=== PATIENT | female | born 1980 | race Caucasian/White ===

== ENCOUNTER 2016-12-01 18:01 | Emergency (ER) | payer OTHER ==
[~2016-12-01] VITALS: Ht 175.3 cm; Wt 88.0 kg
[~2016-12-01 18:01] MED LIST: BUDE100T PO; CITA-48 PO; CLON1 PO; DOXE25CA2 PO; HYDR1CRE TOP; HYDRO50 PO; LAMO100 PO; MEDR4PAK3 PO; MOBI15TA PO; PRAZ5CAP16 PO
[2016-12-01 18:08] VITALS: BP 120/72; PULSE 74; RESP 18; TEMP 98.4; O2SAT 99
[2016-12-01] MEDS ORDERED: PRAZ5CAP PO (18:42)
[2016-12-01] MEDS ORDERED: TRAZ50TA12 PO (18:42)
[2016-12-01] MEDS ORDERED: CLON1TAB PO (18:42)
--- NOTE | 2016-12-01 19:22 | RADHPO ---
EXAM DATE/TIME: 12/01/2016 18:56 [place] COMPARISON: No previous studies available for comparison. INDICATIONS : Patient complains of pain to first digit, right hand after playing football. MEDICAL HISTORY : None. SURGICAL HISTORY : None. ENCOUNTER: Initial ACUITY: 3 days PAIN SCORE: 9/10 LOCATION: Right hand, first digit FINDINGS: No definite fractures, or dislocations are identified. No definite lytic or sclerotic lesion is seen . CONCLUSION: Unremarkable study. Axel Mcgill MD on December 01, 2016 at 19:19 Board Certified Radiologist. This report was verified electronically.
[2016-12-01] MEDS ORDERED: ACETAMINOPHEN/HYDROcodone 325 MG/5 MG TAB PO ONE (19:30)
[2016-12-01] MEDS ORDERED: ULTR50TA5 PO (19:33)
[2016-12-01] MEDS ORDERED: IBUP800T23 PO (19:33)
--- NOTE | 2016-12-01 19:33 | PD ---
HPI . Right thumb injury Chief Complaint: Injury Time Seen by Provider: 19:21 Travel History International Travel<30 days: No Contact w/Intl Traveler<30days: No Traveled to known affect area: No History of Present Illness HPI Patient presents with an injury to her right thumb. She states that she was playing football 2 days ago. She was tackled and injured her right thumb. She is unsure as to the exact mechanism of the injury to the thumb. She states that she has been treating it with ice. Despite that, she is having increasing bruising, swelling and pain. She subsequently presented to us today for evaluation. [id number]: Right thumb SEVERITY: Severe DURATION: 2 days TIMING: Continuous and worsening CONTEXT: Injured playing football PFSH Past Medical History Bipolar Disorder: Yes Anxiety: Yes Diminished Hearing: No Kidney Stones: Yes (2004, 2006) Medical other: Yes ([place]) Psychiatric: Yes (ptsd/bi polar) ?: Not Past Surgical History Oral Surgery: Yes (JAW FX) Social History Alcohol Use: No ("I QUIT") Tobacco Use: No (denies) Substance Use: No Allergies-Medications (Allergen,Severity, Reaction): Coded Allergies: No Known Allergies (Verified , 12/01/16) Reported Meds & Prescriptions Reported Meds & Active Scripts Active Reported Prazosin (Prazosin HCl) 5 Mg Cap 5 Mg PO HS Trazodone (Trazodone HCl) 50 Mg Tab 50 Mg PO HS Clonazepam 1 Mg Tab 1 Mg PO BID Review of Systems Except as stated in HPI: all other systems reviewed are Neg Musculoskeletal: Positive: Myalgias Skin: Positive Change in Pigmentation Physical Exam Narrative GENERAL: Awake and alert and in no acute distress. SKIN: Warm and dry. Bruising and swelling of the thenar eminence of the right hand and extending into the base of the index finger. CARDIOVASCULAR: Regular rate and rhythm. RESPIRATORY: No accessory muscle use. MUSCULOSKELETAL: No obvious deformities. Tender especially in the thenar eminence of the right thumb. NEUROLOGICAL: Awake and alert. No obvious cranial nerve deficits. Motor grossly within normal limits. Normal speech. PSYCHIATRIC: Appropriate mood and affect; insight and judgment normal. Data Data Last Documented VS Vital Signs Date Time Temp Pulse Resp B/P Pulse Ox O2 Delivery O2 Flow Rate FiO2 12/01/16 18:08 98.4 74 18 120/72 99 Orders Finger ([id number]) (12/01/16 ) Acetamin-Hydrocod 325-5 Mg ([place] 5-325 (12/01/16 19:30) MDM Medical Decision Making Medical Screen Exam Complete: Yes Emergency Medical Condition: Yes Differential Diagnosis Differential diagnosis of extremity trauma includes but is not limited to fracture, sprain or strain, dislocation, contusion Narrative Course Patient presents for evaluation of an injury to her right thumb. Last Impressions Finger X-Ray 12/01/16 0000 Signed Impressions: Service Date/Time: Thursday, December 01, 2016 18:56 - CONCLUSION: Unremarkable study. Axel Mcgill MD The x-ray was independently viewed by me. Diagnosis Primary Impression: Contusion of right thumb Qualified Code: S60.011A - Contusion of right thumb without damage to nail, initial encounter Patient Instructions: Contusion in Adults (DC), General Instructions Med/Other Pt SpecificInfo: Prescription(s) given Scripts Tramadol (Ultram)50 Mg Tab50 Mg PO Q4H PRN (PAIN) #12 TAB Ref 0 Prov:Charlotte Gama MD 12/01/16 Ibuprofen 800 Mg Tay227 Mg PO Q8H PRN (PAIN) #30 TAB Ref 0 Prov:Charlotte Gama MD 12/01/16 Disposition: 01 DISCHARGE HOME Condition: Stable Charlotte Gama MD Dec 01, 2016 19:33
== END 2016-12-01 20:18 | disposition home or self-care (01) ==
LOC: PHEFT 18:01
DX: S60.011A Contusion of right thumb without damage to nail, initial encounter (principal); W03.XXXA Other fall on same level due to collision with another person, initial encounter; Y93.61 Activity, american tackle football; Y92.838 Other recreation area as the place of occurrence of the external cause; Y99.9 Unspecified external cause status
CPT/HCPCS: 73140; 99283

== ENCOUNTER 2017-01-20 13:45 | Emergency (ER) | payer OTHER ==
[~2017-01-20] VITALS: Ht 175.3 cm; Wt 88.0 kg
[~2017-01-20 13:45] MED LIST changes: -BUDE100T PO; -CITA-48 PO; -CLON1 PO; +CLON1TAB PO; -DOXE25CA2 PO; -HYDR1CRE TOP; -HYDRO50 PO; +IBUP800T23 PO; -LAMO100 PO; -MEDR4PAK3 PO; -MOBI15TA PO; +PRAZ5CAP PO; -PRAZ5CAP16 PO; +TRAZ50TA12 PO; +ULTR50TA5 PO
[2017-01-20 14:00] VITALS: BP 124/79; PULSE 81; RESP 20; TEMP 98.3; O2SAT 97
[2017-01-20] MEDS ORDERED: SODIUM CHLORIDE 0.9% FLUSH 10 ML FLUSH IVF PRN (14:15)
[2017-01-20] MEDS ORDERED: SODIUM CHLOR 0.9% 1000 ML INJ 1,000 ML IV ONE (14:30)
--- NOTE | 2017-01-20 14:48 | PD ---
HPI Chief Complaint: General Weakness Time Seen by Provider: 14:12 Travel History International Travel<30 days: No Contact w/Intl Traveler<30days: No Traveled to known affect area: No History of Present Illness HPI 36-year-old female here with complaint of diarrhea and lightheadedness. Patient states that she has had 4 days of loose stool, 5-6 stools per day. No hematochezia. No associated abdominal pain. She feels as though she may be dehydrated and had a near syncopal episode several days ago. Patient feels consistently generally weak and fatigued prompting ER visit. She denies any chest pain, shortness of breath, palpitations, personal or familial history of prolonged QT syndrome, WPW, Brugada. PFSH Past Medical History Bipolar Disorder: Yes Anxiety: Yes Diminished Hearing: No Kidney Stones: Yes (2004, 2006) Psychiatric: Yes (ptsd/bi polar) ?: Not LMP: 12/21/16 Past Surgical History Oral Surgery: Yes (JAW FX) Social History Alcohol Use: No ("I QUIT") Tobacco Use: No (denies) Substance Use: No Allergies-Medications (Allergen,Severity, Reaction): Coded Allergies: No Known Allergies (Verified , 12/01/16) Reported Meds & Prescriptions Reported Meds & Active Scripts Active Ultram (Tramadol HCl) 50 Mg Tab 50 Mg PO Q4H PRN Ibuprofen 800 Mg Tab 800 Mg PO Q8H PRN Reported Prazosin (Prazosin HCl) 5 Mg Cap 5 Mg PO HS Clonazepam 1 Mg Tab 1 Mg PO BID Review of Systems Except as stated in HPI: all other systems reviewed are Neg Physical Exam Narrative GENERAL: Well-appearing female in no acute distress SKIN: Focused skin assessment warm/dry. HEAD: Normocephalic. EYES: No scleral icterus. No injection or drainage. ENT: Mucous membranes pink and moist. NECK: Supple CARDIOVASCULAR: Regular rate and rhythm. No murmur appreciated. RESPIRATORY: No accessory muscle use. Clear to auscultation. Breath sounds equal bilaterally. GASTROINTESTINAL: Abdomen soft, non-tender, nondistended. MUSCULOSKELETAL: Normal gait NEUROLOGICAL: Awake and alert. Motor grossly within normal limits. Normal speech. PSYCHIATRIC: Appropriate mood and affect; insight and judgment normal. Data Data Last Documented VS Vital Signs Date Time Temp Pulse Resp B/P Pulse Ox O2 Delivery O2 Flow Rate FiO2 01/20/17 15:02 98 Room Air 01/20/17 14:07 72 01/20/17 14:00 98.3 20 124/79 Orders Electrocardiogram (01/20/17 14:13) Basic Metabolic Panel (Bmp) (01/20/17 14:13) Ed Urine Pregnancytest Poc (01/20/17 14:13) Complete Blood Count With Diff (01/20/17 14:13) Magnesium (Mg) (01/20/17 14:13) Ecg Monitoring (01/20/17 14:13) Iv Access Insert/Monitor (01/20/17 14:13) Oximetry (01/20/17 14:13) Sodium Chloride 0.9% Flush (Ns Flush) (01/20/17 14:15) Sodium Chlor 0.9% 1000 Ml Inj (Ns 1000 M (01/20/17 14:30) Ondansetron Inj (Zofran Inj) (01/20/17 15:30) Loperamide (Imodium) (01/20/17 15:30) Labs Laboratory Tests Test 01/20/17 14:30 White Blood Count 7.9 TH/MM3 Red Blood Count 4.52 MIL/MM3 Hemoglobin 12.8 GM/DL Hematocrit 39.1 % Mean Corpuscular Volume 86.5 FL Mean Corpuscular Hemoglobin 28.2 PG Mean Corpuscular Hemoglobin 32.6 % Concent Red Cell Distribution Width 13.3 % Platelet Count 259 TH/MM3 Mean Platelet Volume 9.3 FL Neutrophils (%) (Auto) 64.7 % Lymphocytes (%) (Auto) 27.6 % Monocytes (%) (Auto) 6.7 % Eosinophils (%) (Auto) 0.6 % Basophils (%) (Auto) 0.4 % Neutrophils # (Auto) 5.1 TH/MM3 Lymphocytes # (Auto) 2.2 TH/MM3 Monocytes # (Auto) 0.5 TH/MM3 Eosinophils # (Auto) 0.0 TH/MM3 Basophils # (Auto) 0.0 TH/MM3 CBC Comment DIFF FINAL Differential Comment Sodium Level 140 MEQ/L Potassium Level 3.9 MEQ/L Chloride Level 109 MEQ/L Carbon Dioxide Level 23.5 MEQ/L Anion Gap 8 MEQ/L Blood Urea Nitrogen 8 MG/DL Creatinine 0.62 MG/DL Estimat Glomerular Filtration 110 ML/MIN Rate Random Glucose 84 MG/DL Calcium Level 8.2 MG/DL Magnesium Level 2.2 MG/DL [facility] Medical Decision Making Medical Screen Exam Complete: Yes Emergency Medical Condition: Yes Medical Record Reviewed: Yes Differential Diagnosis 36-year-old female here with complaint of 4 days of diarrhea and presyncope/ lightheadedness. Differential includes a viral diarrhea, dehydration, electrolyte abnormality, presyncope, arrhythmia, symptomatic anemia. Narrative Course Patient placed on monitor, IV established and blood obtained. Twelve-lead EKG shows diffuse rhythm without notable ST or T-wave abnormalities and normal intervals. Given 1 L normal saline bolus. CBC, BMP, magnesium, urine test unremarkable. Patient felt nauseous and was given dose of Zofran as well as Imodium for diarrhea. Reassured and will be discharged home. Diagnosis Primary Impression: Gastroenteritis Referrals: Primary Care Physician as needed Additional Instructions: Zofran as needed for nausea, Imodium as needed for diarrhea. Drink plenty of fluids. Follow-up with primary care provider if symptoms persist and return to the ER for the warning signs discussed. EKG, laboratory workup today in the emergency department was unremarkable. Med/Other Pt SpecificInfo: Prescription(s) given Scripts Loperamide (Imodium A-D)2 Mg Tab2 Mg PO DIRECTED PRN (DIARRHEA) #18 TAB Ref 0 One tablet after each loose stool. Not to exceed 8 tablets per day. Prov:Eleanor English MD 01/20/17 Ondansetron Odt (Zofran Odt)8 Mg Tab8 Mg SL Q8H PRN (NAUSEA OR VOMITING) #10 TAB Ref 0 Prov:Eleanor English MD 01/20/17 Disposition: 01 DISCHARGE HOME Condition: Stable Eleanor Enlgish MD January 20, 2017 14:48
[2017-01-20 14:49] LABS: AUTOMATED NEUTROPHIL # 5.1 TH/MM3 (1.8-7.7); BASOPHIL % 0.4 % (0.0-2.0); EOSINOPHIL % 0.6 % (0.0-4.0); HEMATOCRIT 39.1 % (35.0-46.0); HEMO FLAGS DIFF FINAL; LYMPH % 27.6 % (9.0-44.0); LYMPHOCYTE # 2.2 TH/MM3 (1.0-4.8); MEAN CELL VOLUME 86.5 FL (80.0-100.0); MEAN CORPUSCULAR HEMOGLOBIN 28.2 PG (27.0-34.0); MEAN CORPUSCULAR HGB CONC 32.6 % (32.0-36.0); MONO % 6.7 % (0.0-8.0); NEUT % 64.7 % (16.0-70.0); PLATELET COUNT 259 TH/MM3 (150-450); RED BLOOD COUNT 4.52 MIL/MM3 (4.00-5.30); RED CELL DISTRIBUTION WIDTH 13.3 % (11.6-17.2); WHITE BLOOD COUNT 7.9 TH/MM3 (4.0-11.0)
[2017-01-20 15:02] VITALS: O2SAT 98
[2017-01-20 15:25] LABS: BICARBONATE 23.5 MEQ/L (21.0-32.0); MAGNESIUM 2.2 MG/DL (1.5-2.5); POTASSIUM 3.9 MEQ/L (3.5-5.1)
[2017-01-20] MEDS ORDERED: ONDANSETRON HCL 4 MG/2 ML VIAL IV PUSH ONE (15:30)
[2017-01-20] MEDS ORDERED: LOPERAMIDE HCL 2 MG CAP PO ONE (15:30)
[2017-01-20] MEDS ORDERED: IMOD2TAB3 PO (15:48)
[2017-01-20] MEDS ORDERED: ZOFR8TAB4 SL (15:48)
--- NOTE | 2017-01-20 19:56 | EKG ---
Date Performed: 01/20/2017 Time Performed: 14:24:33 PTAGE: 36 years EKG: Sinus rhythm PREVIOUS TRACING : 07/01/2015 11.39 Compared to prior tracing no significant change DOCTOR: Carmen Berg Interpretating Date/Time 01/20/2017 19:55:19
== END 2017-01-20 16:45 | disposition home or self-care (01) ==
LOC: NEPD 13:45
DX: K52.9 Noninfective gastroenteritis and colitis, unspecified (principal); R42 Dizziness and giddiness; R53.1 Weakness; R53.83 Other fatigue; Z87.442 Personal history of urinary calculi; Z86.59 Personal history of other mental and behavioral disorders
CPT/HCPCS: 80048; 83735; 84703; 85025; 93005; 96361; 96374; 99284; J2405; J7030

== ENCOUNTER 2017-12-16 21:02 | Emergency (ER) | payer OTHER ==
[~2017-12-16] VITALS: Ht 175.3 cm; Wt 88.2 kg
[~2017-12-16 21:02] MED LIST changes: +IBUP1TAB7 PO; -IBUP800T23 PO; +IMOD2TAB3 PO; +TRAM50 PO; -TRAZ50TA12 PO; -ULTR50TA5 PO; +ZOFR8TAB4 SL
[2017-12-16 21:08] VITALS: BP 114/65; PULSE 90; RESP 18; TEMP 97.8; O2SAT 97
[2017-12-16] MEDS ORDERED: SODIUM CHLOR 0.9% 1000 ML INJ 1,000 ML IV SCH (21:40)
[2017-12-16 21:45] VITALS: RESP 18; O2SAT 98
[2017-12-16] MEDS ORDERED: MORPHINE SULFATE 4 MG/ML INJ IV PUSH ONE (21:45)
[2017-12-16] MEDS ORDERED: ONDANSETRON HCL 4 MG/2 ML VIAL IVP ONE (21:45)
[2017-12-16] MEDS ORDERED: HYDR-3516 PO (21:45)
[2017-12-16] MEDS ORDERED: CLON0.5T PO (21:45)
[2017-12-16] MEDS ORDERED: CIPR-9 PO (21:45)
[2017-12-16] MEDS ORDERED: KETOROLAC TROMETHAMINE 30 MG/ML (IVP) VIAL IVP ONE (21:45)
--- NOTE | 2017-12-16 21:46 | PD ---
HPI Chief Complaint: Flank/Kidney Pain Time Seen by Provider: 21:25 Travel History International Travel<30 days: No Contact w/Intl Traveler<30days: No Traveled to known affect area: No History of Present Illness HPI The patient is a 37-year-old female who presents to the emergency department for left flank pain and urinary symptoms. The patient states she developed UTI-like symptoms on Thursday with frequency and urgency. The patient started taking [id number] Azo which improved her symptoms. The patient states that her symptoms progressed however, and she was evaluated at [facility] in [place], [place], on Thursday. The patient states she has a history of kidney stones and a performed a CT of the abdomen and pelvis which apparently was negative for CT. They also analyzed her urine and diagnosed her with a urinary tract infection/pyelonephritis. The patient was placed on Cipro and she had some improvement yesterday, however, her symptoms returned today. The patient states she only has female sexual partners, she denies any vaginal discharge or bleeding. The patient's last menstrual cycle was November 30, 2017, denies . She denies any history of PID or cervicitis. The pain is located in the left flank and radiates up to the left mid back. She denies any fever, chills, or sweats. She has been taking the Cipro as directed. The patient is normally followed by the [facility], has not been evaluated by her primary physician. Symptoms are moderate. PFSH Past Medical History Bipolar Disorder: Yes Anxiety: Yes Diminished Hearing: No Kidney Stones: Yes (2004, 2006) Psychiatric: Yes (ptsd/bi polar) ?: Not LMP: 11/30/17 Past Surgical History Oral Surgery: Yes (JAW FX) Social History Alcohol Use: No ("I QUIT") Tobacco Use: No (denies) Substance Use: No Allergies-Medications (Allergen,Severity, Reaction): Coded Allergies: No Known Allergies (Verified Adverse Reaction, Unknown, 12/16/17) Reported Meds & Prescriptions Reported Meds & Active Scripts Active Zofran Odt (Ondansetron Odt) 8 Mg Tab 8 Mg SL Q8H PRN Reported Hydrocodone-Acetaminophen 5-325 mg Tab 1 Tab PO Q6H PRN Cipro (Ciprofloxacin HCl) 500 Mg Tab 500 Mg PO BID Clonazepam 0.5 Mg Tab 0.5 Mg PO BID Prazosin (Prazosin HCl) 5 Mg Cap 5 Mg PO HS Review of Systems Except as stated in HPI: all other systems reviewed are Neg General / Constitutional: No: Fever Cardiovascular: No: Chest Pain or Discomfort Respiratory: No: Shortness of Breath Gastrointestinal: Positive: Abdominal Pain, No: Nausea, Vomiting, Diarrhea Genitourinary: Positive: Urgency, Pelvic Pain, Flank Pain, No: Dysuria, Hematuria, Discharge, Vaginal Bleeding Skin: No Rash Physical Exam Narrative GENERAL: Awake, alert, pleasant 37-year-old female who appears her stated age and is in no acute respiratory distress. SKIN: Focused skin assessment warm/dry. HEAD: Atraumatic. Normocephalic. EYES: No injection or drainage. ENT: No nasal bleeding or discharge. Mucous membranes pink and moist. NECK: Trachea midline. No JVD. CARDIOVASCULAR: Regular rate and rhythm. No murmur appreciated. RESPIRATORY: No accessory muscle use. Clear to auscultation. Breath sounds equal bilaterally. GASTROINTESTINAL: Abdomen soft, tender to palpation left lower quadrant and left flank. Back: No CVA tenderness. MUSCULOSKELETAL: No obvious deformities. No clubbing. No cyanosis. No edema. NEUROLOGICAL: Awake and alert. No obvious cranial nerve deficits. Motor grossly within normal limits. Normal speech. PSYCHIATRIC: Appropriate mood and affect; insight and judgment normal. Data Data Last Documented VS Vital Signs Date Time Temp Pulse Resp B/P (MAP) Pulse Ox O2 Delivery O2 Flow Rate FiO2 12/16/17 23:10 16 12/16/17 22:55 57 98/68 (78) 98 Room Air 12/16/17 21:08 97.8 Orders Orders Complete Blood Count With Diff (12/16/17 21:40) Comprehensive Metabolic Panel (12/16/17 21:40) Lipase (12/16/17 21:40) Lactic Acid (12/16/17 21:40) Urinalysis - C+S If Indicated (12/16/17 21:40) Iv Access Insert/Monitor (12/16/17 21:40) Ecg Monitoring (12/16/17 21:40) Oximetry (12/16/17 21:40) Morphine Inj (Morphine Inj) (12/16/17 21:45) Ondansetron Inj (Zofran Inj) (12/16/17 21:45) Sodium Chlor 0.9% 1000 Ml Inj (Ns 1000 M (12/16/17 21:40) Sodium Chloride 0.9% Flush (Ns Flush) (12/16/17 21:45) Ketorolac Inj (Toradol Inj) (12/16/17 21:45) Ed Urine Pregnancytest Poc (12/16/17 21:40) Ceftriaxone Inj (Rocephin Inj) (12/16/17 22:30) Labs Laboratory Tests Test 12/16/17 21:56 White Blood Count 8.0 TH/MM3 Red Blood Count 4.28 MIL/MM3 Hemoglobin 12.6 GM/DL Hematocrit 37.1 % Mean Corpuscular Volume 86.9 FL Mean Corpuscular Hemoglobin 29.4 PG Mean Corpuscular Hemoglobin Concent 33.9 % Red Cell Distribution Width 12.0 % Platelet Count 248 TH/MM3 Mean Platelet Volume 8.8 FL Neutrophils (%) (Auto) 59.7 % Lymphocytes (%) (Auto) 29.6 % Monocytes (%) (Auto) 7.8 % Eosinophils (%) (Auto) 1.7 % Basophils (%) (Auto) 1.2 % Neutrophils # (Auto) 4.8 TH/MM3 Lymphocytes # (Auto) 2.4 TH/MM3 Monocytes # (Auto) 0.6 TH/MM3 Eosinophils # (Auto) 0.1 TH/MM3 Basophils # (Auto) 0.1 TH/MM3 CBC Comment DIFF FINAL Differential Comment Urine Color YELLOW Urine Turbidity CLEAR Urine pH 6.0 Urine Specific [place] GREATER/EQUAL 1.030 Urine Protein NEG mg/dL Urine Glucose (UA) NEG mg/dL Urine Ketones TRACE mg/dL Urine Occult Blood NEG Urine Nitrite NEG Urine Bilirubin NEG Urine Urobilinogen 0.2 MG/DL Urine Leukocyte Esterase NEG Urine RBC 0-3 /hpf Urine WBC 6-8 /hpf Urine Squamous Epithelial Cells > 8 /hpf Urine Bacteria OCC /hpf Microscopic Urinalysis Comment CULT NOT INDICATED Blood Urea Nitrogen 13 MG/DL Creatinine 0.70 MG/DL Random Glucose 85 MG/DL Total Protein 7.3 GM/DL Albumin 3.1 GM/DL Calcium Level 8.3 MG/DL Alkaline Phosphatase 86 U/L Aspartate Amino Transf (AST/SGOT) 14 U/L Alanine Aminotransferase (ALT/SGPT) 22 U/L Total Bilirubin LESS THAN 0.1 MG/DL Sodium Level 140 MEQ/L Potassium Level 4.0 MEQ/L Chloride Level 109 MEQ/L Carbon Dioxide Level 24.1 MEQ/L Anion Gap 7 MEQ/L Estimat Glomerular Filtration Rate 95 ML/MIN Lactic Acid Level 1.1 mmol/L Lipase 102 U/L [facility] Medical Decision Making Medical Screen Exam Complete: Yes Emergency Medical Condition: Yes Medical Record Reviewed: Yes Interpretation(s) Laboratory Tests Test 12/16/17 21:56 White Blood Count 8.0 TH/MM3 Red Blood Count 4.28 MIL/MM3 Hemoglobin 12.6 GM/DL Hematocrit 37.1 % Mean Corpuscular Volume 86.9 FL Mean Corpuscular Hemoglobin 29.4 PG Mean Corpuscular Hemoglobin Concent 33.9 % Red Cell Distribution Width 12.0 % Platelet Count 248 TH/MM3 Mean Platelet Volume 8.8 FL Neutrophils (%) (Auto) 59.7 % Lymphocytes (%) (Auto) 29.6 % Monocytes (%) (Auto) 7.8 % Eosinophils (%) (Auto) 1.7 % Basophils (%) (Auto) 1.2 % Neutrophils # (Auto) 4.8 TH/MM3 Lymphocytes # (Auto) 2.4 TH/MM3 Monocytes # (Auto) 0.6 TH/MM3 Eosinophils # (Auto) 0.1 TH/MM3 Basophils # (Auto) 0.1 TH/MM3 CBC Comment DIFF FINAL Differential Comment Urine Color YELLOW Urine Turbidity CLEAR Urine pH 6.0 Urine Specific [place] GREATER/EQUAL 1.030 Urine Protein NEG mg/dL Urine Glucose (UA) NEG mg/dL Urine Ketones TRACE mg/dL Urine Occult Blood NEG Urine Nitrite NEG Urine Bilirubin NEG Urine Urobilinogen 0.2 MG/DL Urine Leukocyte Esterase NEG Urine RBC 0-3 /hpf Urine WBC 6-8 /hpf Urine Squamous Epithelial Cells > 8 /hpf Urine Bacteria OCC /hpf Microscopic Urinalysis Comment CULT NOT INDICATED Blood Urea Nitrogen 13 MG/DL Creatinine 0.70 MG/DL Random Glucose 85 MG/DL Total Protein 7.3 GM/DL Albumin 3.1 GM/DL Calcium Level 8.3 MG/DL Alkaline Phosphatase 86 U/L Aspartate Amino Transf (AST/SGOT) 14 U/L Alanine Aminotransferase (ALT/SGPT) 22 U/L Total Bilirubin LESS THAN 0.1 MG/DL Sodium Level 140 MEQ/L Potassium Level 4.0 MEQ/L Chloride Level 109 MEQ/L Carbon Dioxide Level 24.1 MEQ/L Anion Gap 7 MEQ/L Estimat Glomerular Filtration Rate 95 ML/MIN Lactic Acid Level 1.1 mmol/L Lipase 102 U/L Records from [facility] Lab work performed 12/14/2017 WBC 12.1, hemoglobin 12.8, hematocrit 38.5, platelet count 242 Sodium 141, potassium 4.2, chloride 102, CO2 25, anion gap 14, glucose 85, BUN 11, creatinine 0.5, calcium 8.7, albumin 3.9, total protein serum 7.2, alkaline phosphatase 75, lipase 16, AST 23, ALT 15, total bili 0.3 Urine qualitative beta hCG negative Urinalysis revealed blood, protein, leukocyte esterase, WBCs greater than 60, RBCs greater than 30, bacteria CT the abdomen and pelvis performed reveals no evidence of nephrolithiasis or obstructive uropathy. Mild nonspecific bladder wall thickening, possible cystitis. Recommend correlation with clinical symptoms and urinalysis. Culture results reveal E. coli that is pansensitive except for trimethoprim sulfa. Differential Diagnosis Differential diagnosis includes UTI, pyelonephritis, nephrolithiasis, PID, cervicitis, ovarian cyst, ovarian torsion, Cipro resistant UTI, tubo-ovarian abscess. Narrative Course IV was established, labs are drawn and sent, and the patient was placed on cardiac telemetry monitoring and continuous pulse oximetry monitoring. The patient was asked to sign release of records so we could obtain the CT results, UA results, and urine culture results from [facility] in [place], [place]. The patient's UA reveals 6-8 WBCs, otherwise unremarkable, UA test was negative. White count is normal. The patient was administered Rocephin 1 g intravenously. PID/cervicitis is less likely as patient denies any sexual activity with men and denies any discharge. The patient's CT from [facility] was negative except for occult bladder wall thickening consistent with cystitis. UA at that time did grow E. coli that was pansensitive to everything except trimethoprim and sulfa. It was sensitive to Cipro. The patient was prescribed Cipro twice a day for 10 days. I will add Pyridium. The patient's lactic acid and white count are unremarkable. The patient is already on [place] for pain. The patient be discharged. Diagnosis Primary Impression: Pyelonephritis Patient Instructions: General Instructions Additional Instructions: Continue Cipro as previously directed. Pyridium as directed. Please provide the patient a copy of her labs at discharge. Follow-up with a primary physician. Med/Other Pt SpecificInfo: Prescription(s) given Scripts Phenazopyridine (Pyridium) 100 Mg Tab 200 MG PO Q8H Y for DYSURIA for 2 Days, #12 TAB 0 Refills Prov: Hussain Shaw MD 12/16/17 Disposition: 01 DISCHARGE HOME Condition: Stable Hussain Shaw MD Dec 16, 2017 21:46
[2017-12-16 21:50] VITALS: BP 114/75; PULSE 77; RESP 18; O2SAT 98
[2017-12-16 22:09] LABS: AUTOMATED NEUTROPHIL # 4.8 TH/MM3 (1.8-7.7); BASOPHIL # 0.1 TH/MM3 (0-0.2); BASOPHIL % 1.2 % (0.0-2.0); BILIRUBIN, URINE NEG (NEG); BLOOD, URINE NEG (NEG); EOSINOPHIL # 0.1 TH/MM3 (0-0.4); EOSINOPHIL % 1.7 % (0.0-4.0); GLUCOSE,URINE NEG (NEG); HEMATOCRIT 37.1 % (35.0-46.0); HEMOGLOBIN 12.6 GM/DL (11.6-15.3); KETONE, URINE TRACE mg/dL (NEG); LYMPH % 29.6 % (9.0-44.0); LYMPHOCYTE # 2.4 TH/MM3 (1.0-4.8); MEAN CELL VOLUME 86.9 FL (80.0-100.0); MEAN CORPUSCULAR HEMOGLOBIN 29.4 PG (27.0-34.0); MEAN CORPUSCULAR HGB CONC 33.9 % (32.0-36.0); MEAN PLATELET VOLUME 8.8 FL (7.0-11.0); MONO % 7.8 % (0.0-8.0); MONOCYTE # 0.6 TH/MM3 (0-0.9); NEUT % 59.7 % (16.0-70.0); NITRITE,URINE NEG (NEG); PLATELET COUNT 248 TH/MM3 (150-450); RED BLOOD COUNT 4.28 MIL/MM3 (4.00-5.30); URINE COLOR YELLOW (YELLW/STRAW); URINE LEUKOCYTE ESTERASE NEG (NEG)
[2017-12-16] MEDS: SODIUM CHLORIDE 0.9% FLUSH 10 ML FLUSH IV FLUSH PRN (22:11)
[2017-12-16 22:13] LABS: RBC, URINE 0-3 /hpf (0-3); SQUAMOUS EPITHELIAL CELL URINE > 8 /hpf (0-5)
[2017-12-16 22:14] LABS: BACTERIA, URINE OCC /hpf
[2017-12-16] MEDS ORDERED: cefTRIAXone INJ 1,000 MG in SODIUM CHLORIDE 0.9% INJ 100 ML IV ONE (22:30)
[2017-12-16 22:41] LABS: CHLORIDE 109 MEQ/L (98-107); SODIUM (NA) 140 MEQ/L (136-145)
[2017-12-16 22:44] LABS: CALCIUM 8.3 MG/DL (8.5-10.1)
[2017-12-16 22:45] LABS: ALBUMIN 3.1 GM/DL (3.4-5.0); BICARBONATE 24.1 MEQ/L (21.0-32.0); BLOOD UREA NITROGEN 13 MG/DL (7-18); GLUCOSE,RANDOM 85 MG/DL (74-106)
[2017-12-16 22:47] LABS: ALT (GPT) 22 U/L (10-53); AST (GOT) 14 U/L (15-37)
[2017-12-16 22:48] LABS: GLOMERULAR FILTRATION RATE 95 ML/MIN (>89)
[2017-12-16 22:49] LABS: TOTAL BILIRUBIN ADULT LESS THAN 0.1 MG/DL (0.2-1.0); TOTAL PROTEIN 7.3 GM/DL (6.4-8.2)
[2017-12-16 22:50] LABS: ALKALINE PHOSPHATASE 86 U/L (45-117)
[2017-12-16 22:55] VITALS: BP 98/68; PULSE 57; RESP 18; O2SAT 98
[2017-12-16] MEDS ORDERED: PHEN0.4T PO (23:47)
[2017-12-17 00:25] VITALS: BP 106/59; PULSE 65; RESP 18; O2SAT 98
[2017-12-17] MEDS: SODIUM CHLORIDE 0.9% FLUSH 10 ML FLUSH IV FLUSH PRN (00:28)
[2017-12-17] MEDS ORDERED: ONDANSETRON HCL 4 MG/2 ML VIAL IV PUSH ONE (00:30)
[2017-12-17] MEDS ORDERED: SODIUM CHLOR 0.9% 1000 ML INJ 1,000 ML IV ONE (00:30)
[2017-12-17] MEDS ORDERED: MORPHINE SULFATE 2 MG/ML SYRINGE IV PUSH ONE (00:30)
[2017-12-17 01:15] VITALS: BP 97/61; PULSE 52; RESP 18; O2SAT 98
== END 2017-12-17 01:28 | disposition home or self-care (01) ==
LOC: PHED 21:02
DX: N12 Tubulo-interstitial nephritis, not specified as acute or chronic (principal); F31.9 Bipolar disorder, unspecified; F43.10 Post-traumatic stress disorder, unspecified; Z87.442 Personal history of urinary calculi; Z79.899 Other long term (current) drug therapy
CPT/HCPCS: 80053; 81001; 83605; 83690; 84703; 85025; 96365; 96375; 96376; 99284; J0696; J1885; J2270; J2405; J7030

== ENCOUNTER 2017-12-19 08:16 | Emergency (ER) | payer OTHER ==
[~2017-12-19] VITALS: Ht 175.3 cm; Wt 85.0 kg
[~2017-12-19 08:16] MED LIST changes: +CIPR-9 PO; +CLON0.5T PO; -CLON1TAB PO; +HYDR-3516 PO; -IBUP1TAB7 PO; -IMOD2TAB3 PO; +PHEN0.4T PO; -TRAM50 PO
[2017-12-19 08:25] VITALS: BP 126/81; PULSE 89; RESP 16; TEMP 97.7; O2SAT 99
[2017-12-19] MEDS ORDERED: KETOROLAC TROMETHAMINE 30 MG/ML (IVP) VIAL IVP ONE (09:15)
[2017-12-19] MEDS ORDERED: SODIUM CHLORIDE 0.9% FLUSH 10 ML FLUSH IV FLUSH PRN (09:15)
[2017-12-19 09:44] LABS: BILIRUBIN, URINE NEG (NEG); BLOOD, URINE NEG (NEG); GLUCOSE,URINE NEG (NEG); KETONE, URINE NEG (NEG); NITRITE,URINE NEG (NEG); PH, URINE 5.5 (5.0-8.5); URINE COLOR YELLOW (YELLW/STRAW); URINE LEUKOCYTE ESTERASE NEG (NEG)
[2017-12-19 09:46] LABS: AUTOMATED NEUTROPHIL # 5.8 TH/MM3 (1.8-7.7); BASOPHIL # 0.1 TH/MM3 (0-0.2); BASOPHIL % 0.7 % (0.0-2.0); EOSINOPHIL # 0.1 TH/MM3 (0-0.4); EOSINOPHIL % 1.3 % (0.0-4.0); HEMOGLOBIN 14.3 GM/DL (11.6-15.3); MEAN CELL VOLUME 86.6 FL (80.0-100.0); MEAN CORPUSCULAR HEMOGLOBIN 29.5 PG (27.0-34.0); MEAN PLATELET VOLUME 8.7 FL (7.0-11.0); MONO % 4.4 % (0.0-8.0); MONOCYTE # 0.4 TH/MM3 (0-0.9); NEUT % 69.6 % (16.0-70.0); PLATELET COUNT 260 TH/MM3 (150-450); RED BLOOD COUNT 4.85 MIL/MM3 (4.00-5.30); RED CELL DISTRIBUTION WIDTH 12.6 % (11.6-17.2); WHITE BLOOD COUNT 8.4 TH/MM3 (4.0-11.0)
[2017-12-19 09:51] LABS: AMORPHOUS SEDIMENT, URINE FEW; BACTERIA, URINE MOD /hpf; SQUAMOUS EPITHELIAL CELL URINE > 8 /hpf (0-5); WBC, URINE 0-2 /hpf (0-5)
[2017-12-19 10:01] LABS: CHLORIDE 107 MEQ/L (98-107); SODIUM (NA) 138 MEQ/L (136-145)
[2017-12-19 10:03] LABS: CALCIUM 8.6 MG/DL (8.5-10.1)
[2017-12-19 10:04] LABS: ALBUMIN 3.3 GM/DL (3.4-5.0); BICARBONATE 22.5 MEQ/L (21.0-32.0); BLOOD UREA NITROGEN 11 MG/DL (7-18); GLUCOSE,RANDOM 98 MG/DL (74-106)
[2017-12-19 10:07] LABS: ALT (GPT) 25 U/L (10-53); AST (GOT) 26 U/L (15-37); GLOMERULAR FILTRATION RATE 95 ML/MIN (>89)
[2017-12-19 10:08] LABS: TOTAL PROTEIN 7.9 GM/DL (6.4-8.2)
[2017-12-19 10:10] LABS: ALKALINE PHOSPHATASE 66 U/L (45-117)
[2017-12-19 10:14] LABS: TOTAL BILIRUBIN ADULT 0.1 MG/DL (0.2-1.0)
--- NOTE | 2017-12-19 10:21 | PD ---
HPI Chief Complaint: Complaint Time Seen by Provider: 09:05 Travel History International Travel<30 days: No Contact w/Intl Traveler<30days: No Traveled to known affect area: No History of Present Illness HPI This is a 37-year-old female here for evaluation of continued left flank pain. She was diagnosed with pyelonephritis on 12/16/17. She is currently on Cipro and reports compliance. She denies fever or chills. 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 She reports at her prior visit she had bilateral flank pain after starting Cipro, the right resolved the left persist. Denies any possibility of . She denies nausea or vomiting. No abdominal pain. No hematuria. No difficulty urinating. Pain in the left flank is sharp, intermittent and slightly relieved with Lortab. Patient is asking for morphine specifically. According to patient and previous note she had CT of abdomen pelvis on 12/14/17 which was negative for kidney stone or other acute pathology. Symptom severity is moderate. No aggravating factors. Lortab improves pain. PFSH Past Medical History Bipolar Disorder: Yes Anxiety: Yes Diminished Hearing: No Kidney Stones: Yes (2004, 2006) Psychiatric: Yes (ptsd/bi polar) ?: Not LMP: 11/30/17 : 0 Past Surgical History Oral Surgery: Yes (JAW FX) Social History Alcohol Use: No ("I QUIT") Tobacco Use: No (denies) Substance Use: No Allergies-Medications (Allergen,Severity, Reaction): Coded Allergies: No Known Allergies (Verified Adverse Reaction, Unknown, 12/19/17) Reported Meds & Prescriptions Reported Meds & Active Scripts Active Ketorolac (Ketorolac Tromethamine) 10 Mg Tab 10 Mg PO Q6HR PRN Zofran Odt (Ondansetron Odt) 8 Mg Tab 8 Mg SL Q8H PRN Reported Hydrocodone-Acetaminophen 5-325 mg Tab 1 Tab PO Q6H PRN Cipro (Ciprofloxacin HCl) 500 Mg Tab 500 Mg PO BID Clonazepam 0.5 Mg Tab 0.5 Mg PO BID Prazosin (Prazosin HCl) 5 Mg Cap 5 Mg PO HS Review of Systems Except as stated in HPI: all other systems reviewed are Neg General / Constitutional: No: Fever Eyes: No: Visual changes HENT: No: Headaches Cardiovascular: No: Chest Pain or Discomfort Respiratory: No: Shortness of Breath Gastrointestinal: No: Abdominal Pain Genitourinary: No: Dysuria Musculoskeletal: Positive: Other (Left flank) Skin: No Rash Physical Exam Narrative GENERAL: Alert and well-appearing 37-year-old female. Patient is sitting comfortably on the stretcher in no distress SKIN: Warm and dry. No diaphoresis HEAD: Atraumatic. Normocephalic. EYES: Pupils equal and round. No scleral icterus. No injection or drainage. ENT: No nasal bleeding or discharge. Mucous membranes pink and moist. NECK: Trachea midline. CARDIOVASCULAR: Regular rate and rhythm. RESPIRATORY: No accessory muscle use. Clear to auscultation. Breath sounds equal bilaterally. GASTROINTESTINAL: Abdomen soft, non-tender, nondistended. Hepatic and splenic margins not palpable. MUSCULOSKELETAL: Extremities without clubbing, cyanosis, or edema. No obvious deformities. BACK: Mild left CVA tenderness. No rash. No point tenderness on palpation of the spine. NEUROLOGICAL: Awake and alert. No obvious cranial nerve deficits. Motor grossly within normal limits. Five out of 5 muscle strength in the arms and legs. Normal speech. PSYCHIATRIC: Appropriate mood and affect; insight and judgment normal. Data Data Last Documented VS Vital Signs Date Time Temp Pulse Resp B/P (MAP) Pulse Ox O2 Delivery O2 Flow Rate FiO2 12/19/17 10:52 16 12/19/17 08:25 97.7 89 126/81 (96) 99 Orders Orders Complete Blood Count With Diff (12/19/17 09:13) Comprehensive Metabolic Panel (12/19/17 09:13) Lipase (12/19/17 09:13) Lactic Acid (12/19/17 09:13) Urinalysis - C+S If Indicated (12/19/17 09:13) Iv Access Insert/Monitor (12/19/17 09:13) Sodium Chloride 0.9% Flush (Ns Flush) (12/19/17 09:15) Ketorolac Inj (Toradol Inj) (12/19/17 09:15) Urine Culture (12/19/17 09:25) Morphine Inj (Morphine Inj) (12/19/17 10:30) Ceftriaxone Inj (Rocephin Inj) (12/19/17 10:30) Ed Discharge Order (12/19/17 11:04) Labs Laboratory Tests Test 12/19/17 09:25 White Blood Count 8.4 TH/MM3 Red Blood Count 4.85 MIL/MM3 Hemoglobin 14.3 GM/DL Hematocrit 42.0 % Mean Corpuscular Volume 86.6 FL Mean Corpuscular Hemoglobin 29.5 PG Mean Corpuscular Hemoglobin Concent 34.0 % Red Cell Distribution Width 12.6 % Platelet Count 260 TH/MM3 Mean Platelet Volume 8.7 FL Neutrophils (%) (Auto) 69.6 % Lymphocytes (%) (Auto) 24.0 % Monocytes (%) (Auto) 4.4 % Eosinophils (%) (Auto) 1.3 % Basophils (%) (Auto) 0.7 % Neutrophils # (Auto) 5.8 TH/MM3 Lymphocytes # (Auto) 2.0 TH/MM3 Monocytes # (Auto) 0.4 TH/MM3 Eosinophils # (Auto) 0.1 TH/MM3 Basophils # (Auto) 0.1 TH/MM3 CBC Comment DIFF FINAL Differential Comment Urine Collection Type CLEAN CATCH Urine Color YELLOW Urine Turbidity SL CLOUDY Urine pH 5.5 Urine Specific Superior 1.025 Urine Protein NEG mg/dL Urine Glucose (UA) NEG mg/dL Urine Ketones NEG mg/dL Urine Occult Blood NEG Urine Nitrite NEG Urine Bilirubin NEG Urine Urobilinogen 0.2 MG/DL Urine Leukocyte Esterase NEG Urine WBC 0-2 /hpf Urine Squamous Epithelial Cells > 8 /hpf Urine Amorphous Sediment FEW Urine Bacteria MOD /hpf Microscopic Urinalysis Comment CULTURE INDICATED Urine Collection Time 0900 Blood Urea Nitrogen 11 MG/DL Creatinine 0.70 MG/DL Random Glucose 98 MG/DL Total Protein 7.9 GM/DL Albumin 3.3 GM/DL Calcium Level 8.6 MG/DL Alkaline Phosphatase 66 U/L Aspartate Amino Transf (AST/SGOT) 26 U/L Alanine Aminotransferase (ALT/SGPT) 25 U/L Total Bilirubin 0.1 MG/DL Sodium Level 138 MEQ/L Potassium Level 4.5 MEQ/L Chloride Level 107 MEQ/L Carbon Dioxide Level 22.5 MEQ/L Anion Gap 9 MEQ/L Estimat Glomerular Filtration Rate 95 ML/MIN Lactic Acid Level 1.3 mmol/L Lipase 84 U/L [facility] Medical Decision Making Medical Screen Exam Complete: Yes Emergency Medical Condition: Yes Differential Diagnosis Pyelonephritis, nephrolithiasis, hydronephrosis Narrative Course 37-year-old female here for evaluation of continued left flank pain. Patient was diagnosed with pyelonephritis 12/14/17. She is currently on Cipro reports compliance. She is well-appearing. According to prior note urine culture was pansensitive with the exception of Bactrim. She denies any fever, chills, nausea, vomiting, difficulty urinating. Labs reviewed CBC is unremarkable no leukocytosis. CMP unremarkable. Lactic acid 1.3. UA: No nitrates, no RBCs, no WBCs, few bacteria. Case was discussed with my attending physician Dr. Garcia He agrees with diagnosis and treatment plan. all studies discussed with patient. She was given IV Rocephin, Toradol, morphine and reports symptom improvement nearly resolved. She is stable and ready for discharge. She is instructed to continue her Cipro for 5 more days. Follow-up with her PCP for recheck. Return if she develops fever, chills, nausea, vomiting, difficulty urinating, severe increasing pain. She verbalized understanding and agrees to plan. Diagnosis Primary Impression: Pyelonephritis Referrals: Primary Care Physician Additional Instructions: Continue Cipro as directed. Stay well hydrated. Toradol as needed for pain. Follow up with your doctor. Scripts Ketorolac (Ketorolac) 10 Mg Tab 10 MG PO Q6HR Y for PAIN, #15 TAB 0 Refills Prov: Megan Sterling 12/19/17 Disposition: 01 DISCHARGE HOME Condition: Stable Megan Sterling Dec 19, 2017 10:21
[2017-12-19] MEDS ORDERED: MORPHINE SULFATE 4 MG/ML INJ IV PUSH ONE (10:30)
[2017-12-19] MEDS ORDERED: cefTRIAXone INJ 1,000 MG in SODIUM CHLORIDE 0.9% INJ 100 ML IV ONE (10:30)
[2017-12-19] MEDS ORDERED: KETO10 PO (11:03)
[2017-12-19 11:12] VITALS: BP 107/71; PULSE 67; RESP 16; O2SAT 97
== END 2017-12-19 11:52 | disposition home or self-care (01) ==
LOC: PHED 08:16
DX: N12 Tubulo-interstitial nephritis, not specified as acute or chronic (principal); F31.9 Bipolar disorder, unspecified; F43.10 Post-traumatic stress disorder, unspecified; Z87.442 Personal history of urinary calculi; Z79.2 Long term (current) use of antibiotics; Z79.899 Other long term (current) drug therapy
CPT/HCPCS: 80053; 81001; 83605; 83690; 85025; 87086; 96365; 96375; 99284; J0696; J1885; J2270